=== PATIENT | female | born 1975 | race Caucasian/White ===

== ENCOUNTER 2021-06-23 08:38 | Inpatient (IN) | payer OTHER ==
[2021-06-23] VITALS (7 sets, daily range): BP systolic 93–108; BP diastolic 53–63
[~2021-06-23] VITALS: Ht 167.6 cm; Wt 75.0 kg
[2021-06-23] MEDS ORDERED: FOLIC ACID 1 MG TABLET. PO ONE (09:00)
[2021-06-23] MEDS ORDERED: MULTIVITAMIN with MINERAL TABLET. PO ONE (09:00)
[2021-06-23] MEDS ORDERED: THIAMINE 100 MG TABLET. PO ONE (09:00)
[2021-06-23 09:04] LABS: BASE EXCESS ABG -7 mmol/L (-3-3); FIO2 ABG 100 NRB; HCO3 ABG 17 mmol/L (21-28); PCO2 ABG 29 mmHg (35-46); PO2 ABG 437 mmHg (75-108); SAT O2 ABG 99 % (92-99)
--- NOTE | 2021-06-23 09:32 | RAD ---
EXAM: Chest, single view. HISTORY: Altered mental status. COMPARISON: None. FINDINGS: A frontal view of the chest is obtained. There is no infiltrate, pleural effusion or pneumo thorax. There are circumscribed nodular opacities overlying the lower thorax due to nipple shadows. T he heart is normal in size. IMPRESSION: No acute pulmonary finding. Electronically signed by: Aditi Brandt MD (06/23/2021 9:30 AM) [id number]
[2021-06-23] MEDS ORDERED: MULTIVIT INFUSN,ADULT 4,VIT K 10 ML, THIAMINE INJ 100 MG, FOLIC ACID INJ 1 MG in IV NOR... IV ONE (10:00)
[2021-06-23 10:02] LABS: BASO % 0 % (0-3); EOS % 1 % (0-3); HEMATOCRIT 41.3 % (36.0-47.0); HEMOGLOBIN 14.2 g/dL (12.0-15.5); LYMPH % 27 % (24-48); MEAN CORPUSCULAR HEMOGLOBIN 31 pg (25-35); MEAN CORPUSCULAR HGB CONC 34 g/dL (31-37); MEAN CORPUSCULAR VOLUME 92 fL (79-100); MONO # 0.2 x10^3/uL (0.0-1.1); MONO % 5 % (0-9); NEUT # 2.5 x10^3/uL (1.8-7.7); NEUT % 67 % (31-73); PLATELET COUNT 261 x10^3/uL (140-400); RED BLOOD COUNT 4.51 x10^6/uL (3.50-5.40); RED CELL DISTRIBUTION WIDTH 13.5 % (11.5-14.5); WHITE BLOOD COUNT 3.8 x10^3/uL (4.0-11.0)
[2021-06-23 10:17] LABS: ACETAMIN < 2 mcg/ml (10-30); SALIC 1.5 mg/dL (2.8-20.0)
[2021-06-23 10:19] LABS: ETHANOL 114 mg/dL (0-10)
--- NOTE | 2021-06-23 10:20 | RAD ---
CT HEAD/BRAIN WO History: Intoxication. Altered mental status. Comparison: None. Technique: Noncontrast CT imaging was performed of the head. Findings: No intracranial hemorrhage. No mass effect. No hydrocephalus. No evidence of acute territorial infar ction. Imaged orbits are unremarkable. Imaged paranasal sinuses and mastoid air cells are clear. The scalp a nd calvarium are unremarkable. Impression: 1. No acute intracranial abnormality. ----- Exposure: One or more of the following individualized dose reduction techniques were utilized for thi s examination: 1. Automated exposure control 2. Adjustment of the mA and/or kV according to patient size 3. Use of iterative reconstruction technique. Electronically signed by: Isaias Patterson MD (06/23/2021 10:18 AM) [id number]
[2021-06-23 10:55] LABS: CALCIUM 8.9 mg/dL (8.5-10.1); CREATININE 1.1 mg/dL (0.6-1.0); GFR 53.5; POTASSIUM 4.1 mmol/L (3.5-5.1)
[2021-06-23 11:01] LABS: DIRECT BILIRUBIN 0.1 mg/dL (0.0-0.2); MAGNESIUM 2.2 mg/dL (1.8-2.4); TOTAL BILIRUBIN 0.2 mg/dL (0.2-1.0)
[2021-06-23 11:52] LABS: RBC,URINE OCC /HPF (0-2)
[2021-06-23 11:58] LABS: BACTERIA,URINE 0 /HPF (0-FEW)
[2021-06-23 12:06] LABS: BARBITURATES NEG (NEG); BENZODIAZEPINES POS (NEG); CANNABINOIDS NEG (NEG); COCAINE NEG (NEG); METHADONE NEG (NEG); OPIATES NEG (NEG); PHENCYCLIDINE NEG (NEG)
[2021-06-23 12:09] LABS: AMPHETAMINE/METHAMPHETAMINE NEG (NEG)
--- NOTE | 2021-06-23 14:44 | HP ---
DATE OF SERVICE: 06/23/2021 ADMIT DATE: 06/23/2021 CHIEF COMPLAINT: Mental status change. HISTORY OF PRESENT ILLNESS: The patient is a pleasant 46-year-old female who was found in her car. She is drunk. The car was in the garage but the engine was apparently not running. The ER physician was able to talk to her briefly and asked her if she felt like she was going to hurt herself, she said yes she was going to hurt herself. Currently, the patient is stable. We are going to admit the patient. I am going to get a carbon monoxide level. I spoke with the lab. I spoke with the ER physician. PAST MEDICAL HISTORY: Probable alcohol issues. ALLERGIES: None. FAMILY HISTORY: Hypertension. SOCIAL HISTORY: Apparently, she drinks. We are not sure if she smokes or takes drugs. MEDICATIONS: Reviewed. Please refer to the MRAD. REVIEW OF SYSTEMS: Unable to obtain. She is sleepy, will not talk. PHYSICAL EXAMINATION: VITALS: Within normal limits and are stable. GENERAL: She is sleepy and will not talk. HEENT: Normal cephalic atraumatic, external auditory canals are patent. EYES: Extraocular muscles are intact, pupils are equally round and reactive to light and accommodation. MUSCULOSKELETAL: Well developed, well nourished, good range of motion. ENDOCRINE: No thyromegaly was palpated. LYMPHATICS: No cervical chain or axillary nodes were noted. HEMATOPOIETIC: No bruising. NECK: Supple, no JVD, no thyromegaly was noted. LUNGS: Clear to auscultation in all lung mosquera without rhonchi or wheezing. HEART: RRR, S1, S2 present. Peripheral pulses intact, no obvious murmurs were noted. ABDOMEN: Soft, nontender. Positive bowel sounds no organomegaly, normal bowel sounds. EXTREMITIES: Without any cyanosis, clubbing, or edema. Pedal pulses intact, Homans sign is negative. NEUROLOGIC: She is sleepy and will not talk. PSYCHIATRIC: She is sleepy and will not talk. SKIN: No ulcerations or rashes, good skin turgor, no jaundice. VASCULAR: Good capillary refill, neurovascular bundle appears to be intact. LABORATORY DATA: ABG: pH of 7.37, pCO2 of 29, pO2 of 437 with 99% sat on 100% nonrebreather. Electrolytes are normal. Drug screen, salicylate level 1.5, she is positive for benzos and she is also positive for alcohol. ASSESSMENT AND PLAN: Alcohol intoxication combined with benzos with a small possibility that she may have carbon monoxide poisoning as well. I have ordered a carbon monoxide level. For now we are doing 1:1 observation. Alcohol withdrawal protocol, home meds. Deep venous thrombosis prophylaxis. Full code. JUAN DR: Dottie TID: [id number]
--- NOTE | 2021-06-23 14:54 | PHYS DOC ---
Past Medical History Past Surgical History: No Surgical History Smoking Status: Unknown if ever smoked Alcohol Use: Heavy General Adult EDM: Chief Complaint: ALCOHOL INTOXICATION HPI: HPI: Patient is a 46 year old F who presents with acute alcohol intoxication. Patient presented by EMS after being found by family in her car. Patient is a wake and alert but sleepy. Patient was found with many alcohol bottles. Patient was in her vehicle with the vehicle turned off. Otherwise patient is not having any complaints. Review of Systems: Review of Systems: Constitutional: Denies fever or chills. [] Eyes: Denies change in visual acuity. [] HENT: Denies nasal congestion or sore throat. [] Respiratory: Denies cough or shortness of breath. [] Cardiovascular: Denies chest pain or edema. [] GI: Denies abdominal pain, nausea, vomiting, bloody stools or diarrhea. [] : Denies dysuria. [] Musculoskeletal: Denies back pain or joint pain. [] Integument: Denies rash. [] Neurologic: Denies headache, focal weakness or sensory changes. [] Endocrine: Denies polyuria or polydipsia. [] Lymphatic: Denies swollen glands. [] Psychiatric: Denies depression or anxiety. [] Heart Score: C/O Chest Pain: No Risk Factors: Risk Factors: DM, Current or recent (<one month) smoker, HTN, HLP, family history of CAD, obesity. Risk Scores: Score 0 - 3: 2.5% MACE over next 6 weeks - Discharge Home Score 4 - 6: 20.3% MACE over next 6 weeks - Admit for Clinical Observation Score 7 - 10: 72.7% MACE over next 6 weeks - Early Invasive Strategies Current Medications: Current Medications Medications (Trade) Dose Ordered Sig/[facility] Start Time Stop Time Status Last Admin Dose Admin Folic Acid (Folic Acid) 1 mg 1X ONCE 06/23/21 09:00 06/23/21 09:01 UNV Multivitamins (Thera M Plus) 1 tab 1X ONCE 06/23/21 09:00 06/23/21 09:01 UNV Multivitamins 10 ml/Thiamine HCl 100 mg/Folic Acid 1 mg/Sodium Chloride 1,011.2 ml @ 1,000 mls/ hr 1X ONCE 06/23/21 10:00 06/23/21 11:00 DC 06/23/21 09:25 1,000 MLS/HR Thiamine Mononitrate (Vitamin B-1) 100 mg 1X ONCE 06/23/21 09:00 06/23/21 09:01 UNV Allergies: Allergies: Allergies Coded Allergies Type Severity Reaction Last Updated Verified No Known Drug Allergies 06/23/21 No Physical Exam: PE: Constitutional: Well developed, well nourished, no acute distress, non-toxic appearance. [] HENT: Normocephalic, atraumatic, bilateral external ears normal, oropharynx moist, no oral exudates, nose normal. [] Eyes: PERRLA, EOMI, conjunctiva normal, no discharge. [] Neck: Normal range of motion, no tenderness, supple, no stridor. [] Cardiovascular:Heart rate regular rhythm, no murmur [] Lungs & Thorax: Bilateral breath sounds clear to auscultation [] Abdomen: Bowel sounds normal, soft, no tenderness, no masses, no pulsatile masses. [] Skin: Warm, dry, no erythema, no rash. [] Back: No tenderness, no CVA tenderness. [] Extremities: No tenderness, no cyanosis, no clubbing, ROM intact, no edema. [] Neurologic: Alert and oriented X 3, normal motor function, normal sensory fun ction, no focal deficits noted. [] Psychologic: Affect normal, judgement normal, mood normal. [] Current Patient Data: Labs: Laboratory Tests Test 06/23/21 08:51 06/23/21 08:54 06/23/21 09:17 06/23/21 09:42 Urine Collection Type Unknown Urine Color (Auto) Colorless Urine Turbidity Clear Urine pH (Auto) 5.5 (<5.0-8.0) Urine Specific [place] 1.005 (1.000-1.030) Urine Protein (Auto) Negative mg/dL (Negative) Urine Glucose (Auto)(UA) Negative mg/dL (Negative) Urine Ketones (Auto) Negative mg/dL (Negative) Urine Blood (Auto) Negative (Negative) Urine Nitrite (Auto) Negative (Negative) Urine Bilirubin (Auto) Negative (Negative) Urine Urobilinogen (Auto) Normal mg/dL (Normal) Urine Leukocyte Esterase (Auto) Negative (Negative) Urine RBC Occ /HPF (0-2) Urine WBC 1-4 /HPF (0-4) Urine Squamous Epithelial Cells Few /LPF Urine Bacteria 0 /HPF (0-FEW) Urine Mucus /LPF Urine Opiates Screen Neg (NEG) Urine Methadone Screen Neg (NEG) Urine Barbiturates Neg (NEG) Urine Phencyclidine Screen Neg (NEG) Urine Amphetamine/Methamphetamine Neg (NEG) Urine Benzodiazepines Screen Pos (NEG) Urine Cocaine Screen Neg (NEG) Urine Cannabinoids Screen Neg (NEG) Urine Ethyl Alcohol Pos (NEG) O2 Saturation 99 % (92-99) Arterial Blood pH 7.37 (7.35-7.45) Arterial Blood pCO2 at Patient Temp 29 mmHg (35-46) L Arterial Blood pO2 at Patient Temp 437 mmHg (75-108) H Arterial Blood HCO3 17 mmol/L (21-28) L Arterial Blood Base Excess -7 mmol/L (-3-3) L FiO2 100 nrb SARS-CoV-2 Antigen (Rapid) Negative (NEGATIVE) White Blood Count 3.8 x10^3/uL (4.0-11.0) L Red Blood Count 4.51 x10^6/uL (3.50-5.40) Hemoglobin 14.2 g/dL (12.0-15.5) Hematocrit 41.3 % (36.0-47.0) Mean Corpuscular Volume 92 fL (79-100) Mean Corpuscular Hemoglobin 31 pg (25-35) Mean Corpuscular Hemoglobin Concent 34 g/dL (31-37) Red Cell Distribution Width 13.5 % (11.5-14.5) Platelet Count 261 x10^3/uL (140-400) Neutrophils (%) (Auto) 67 % (31-73) Lymphocytes (%) (Auto) 27 % (24-48) Monocytes (%) (Auto) 5 % (0-9) Eosinophils (%) (Auto) 1 % (0-3) Basophils (%) (Auto) 0 % (0-3) Neutrophils # (Auto) 2.5 x10^3/uL (1.8-7.7) Lymphocytes # (Auto) 1.0 x10^3/uL (1.0-4.8) Monocytes # (Auto) 0.2 x10^3/uL (0.0-1.1) Eosinophils # (Auto) 0.0 x10^3/uL (0.0-0.7) Basophils # (Auto) 0.0 x10^3/uL (0.0-0.2) Lactic Acid Level 1.7 mmol/L (0.4-2.0) Salicylates Level 1.5 mg/dL (2.8-20.0) L Salicylate Last Dose Date Unknown Salicylate Last Dose Time Unknown Acetaminophen Level < 2 mcg/ml (10-30) L Acetaminophen Last Dose Date Unknown Acetaminophen Last Dose Time Unknown Ethyl Alcohol Level 114 mg/dL (0-10) H Test 06/23/21 10:13 Sodium Level 140 mmol/L (136-145) Potassium Level 4.1 mmol/L (3.5-5.1) Chloride Level 106 mmol/L (98-107) Carbon Dioxide Level 22 mmol/L (21-32) Anion Gap 12 (6-14) Blood Urea Nitrogen 13 mg/dL (7-20) Creatinine 1.1 mg/dL (0.6-1.0) H Estimated GFR (Cockcroft-Gault) 53.5 Glucose Level 91 mg/dL (70-99) Calcium Level 8.9 mg/dL (8.5-10.1) Magnesium Level 2.2 mg/dL (1.8-2.4) Total Bilirubin 0.2 mg/dL (0.2-1.0) Direct Bilirubin 0.1 mg/dL (0.0-0.2) Aspartate Amino Transferase (AST) 16 U/L (15-37) Alanine Aminotransferase (ALT) 23 U/L (14-59) Alkaline Phosphatase 40 U/L (46-116) L Total Protein 8.0 g/dL (6.4-8.2) Albumin 4.0 g/dL (3.4-5.0) Laboratory Tests 06/23/21 09:42 Laboratory Tests 06/23/21 10:13 Vital Signs: Vital Signs Date Time Temp Pulse Resp B/P (MAP) Pulse Ox O2 Delivery O2 Flow Rate FiO2 06/23/21 11:57 81 20 100/63 (75) 99 Room Air 06/23/21 08:50 98.6 98.6 EKG: EKG: Normal sinus rhythm Radiology/Procedures: Radiology/Procedures: [] Impression: Chest x-ray within normal limits Course & Med Decision Making: Course & Med Decision Making Pertinent Labs and Imaging studies reviewed. (See chart for details) 46-year-old female with acute alcohol intoxication, patient is somnolent, she is alert and oriented when awakened. Patient is not having any complaints, when questioned she does state that she tried to hurt herself. She states that she has suicidal ideation. She is currently hemodynamically stable. With the combination of acute alcohol intoxication and suicidal ideation, decision was made to admit the patient to the hospitalist service. Carboxyhemoglobin pending. Patient admitted to the service of Dr. Zhu; patient is hemodynamically stable at time of admission Dragon Disclaimer: Amira Disclaimer: This electronic medical record was generated, in whole or in part, using a voice recognition dictation system. Departure Departure Impression: Primary Impression: Alcohol intoxication delirium Additional Impression: Suicidal ideation Disposition: ADMITTED INPATIENT Condition: GOOD SHAINA MCCLAIN MD June 23, 2021 14:54
[2021-06-24] VITALS (9 sets, daily range): BP systolic 92–115; BP diastolic 49–83
--- NOTE | 2021-06-24 06:03 | EKG ---
[facility] [address] [place] [address] Test Date: 2021-06-23 Test Time: 11:37:40 Pat Name: GIDEON HERNANDEZ Department: Room: ED HOLD 22 Gender: F [employer]: : 1975 Requested By: SHAINA Ortiz Number: [id number] Reading MD: Dennys Vega Measurements Intervals [place] Rate: 79 P: 48 OR: 150 QRS: 45 QRSD: 78 T: 48 QT: 382 QTc: 439 Interpretive Statements SINUS RHYTHM NORMAL ECG RI6.02 No previous ECG available for comparison Electronically Signed On 06-26-2021 10:14:10 CDT by Dennys Vega
[2021-06-24] MEDS ORDERED: ONDANSETRON PF 4 MG/2 ML VIAL. IVP PRN (08:00)
[2021-06-24] MEDS ORDERED: cloNIDine HCL 0.1 MG TABLET PO PRN (08:00)
[2021-06-24] MEDS ORDERED: ACETAMINOPHEN 325 MG TABLET. PO PRN (08:00)
--- NOTE | 2021-06-24 08:54 | PDOC ---
[employer] PROGRESS NOTE Date of Service DOS: DATE: 06/24/21 TIME: 08:31 Chief Complaint Chief Complaint Acute encephalopathy - due to alcohol intoxication, toxic Suicidal ideation - no specific plan currently, very depressed Depression with bipolar disorder Migraines Fibromyalgia Atopic dermatitis FEN - regular diet PPX - ambulatory, low risk FULL CODE Dispo -patient medically stable and cleared for discharge to psychiatric [facility] History of Present Illness History of Present Illness Ms Monsalve is a 46yo female w/ PMHx Depression with bipolar disorder, migraines, fibromyalgia, and atopic dermatitis who presented to ED via EMS after being found by family and friends intoxicated in her car. When she woke she endorsed she was trying to kill her self and felt worthless and wishes she was not here anymore. She was intoxicated initially on 06/23/2021 when she arrived and urine drug screen also positive for benzodiazepines and mild transaminitis and slight leukopenia otherwise negative CT head negative chest radiograph. She was placed on one-to-one 1 hold for suicidal ideation and [place] catheter placed due to confusion concern for incontinence. 06/23: She notes diffuse pain and just wants the pain to go away this morning. She notes she is previously been hospitalized inpatient psych in the [place] and thinks she has been to either [facility] or [facility] previously but has not returned. She says she sees Dr. Muse outpatient and has been prescribed Prozac previously and Cymbalta but they are sitting in her closet. The only medication that she can recall taking regularly are gabapentin Dupixent and Topamax. She notes she is awaiting referral to a neurologist for migraine headaches and fibromyalgia. She says recently she has been more depressed over friends and she feels she has survivors guilt. She notes she does struggle with alcohol misuse but has no history of other substance abuse Plan: We will consult psychiatric assessment team nurse liaison, CARLA [place] catheter, start gabapentin Topamax Cymbalta reconciled rest of her medications. After assessment by PAT team may be able to discontinue one-to-one. Otherwise, patient has no acute medical conditions requiring inpatient hospitalization and is medically cleared for discharge to psychiatric facility Vitals/I&O Vitals/I&O: Vital Signs Date Time Temp Pulse Resp B/P (MAP) Pulse Ox O2 Delivery O2 Flow Rate FiO2 06/24/21 06:51 78 18 109/60 (76) 98 Room Air 06/23/21 08:50 98.6 98.6 I & O 06/23/21 06/23/21 06/24/21 15:00 23:00 07:00 Intake Total 1000 ml Output Total 800 ml 850 ml Balance 200 ml -850 ml Physical Exam General: Alert, Cooperative Heart: Regular rate, Normal S1, Normal S2 Lungs: Clear Abdomen: Normal bowel sounds, Soft Extremities: No clubbing, No cyanosis Skin: No rashes, No breakdown Labs Labs: Laboratory Tests Test 06/23/21 08:51 06/23/21 08:54 06/23/21 09:17 06/23/21 09:42 Urine Collection Type Unknown Urine Color (Auto) Colorless Urine Turbidity Clear Urine pH (Auto) 5.5 (<5.0-8.0) Urine Specific [place] 1.005 (1.000-1.030) Urine Protein (Auto) Negative mg/dL (Negative) Urine Glucose (Auto)(UA) Negative mg/dL (Negative) Urine Ketones (Auto) Negative mg/dL (Negative) Urine Blood (Auto) Negative (Negative) Urine Nitrite (Auto) Negative (Negative) Urine Bilirubin (Auto) Negative (Negative) Urine Urobilinogen (Auto) Normal mg/dL (Normal) Urine Leukocyte Esterase (Auto) Negative (Negative) Urine RBC Occ /HPF (0-2) Urine WBC 1-4 /HPF (0-4) Urine Squamous Epithelial Cells Few /LPF Urine Bacteria 0 /HPF (0-FEW) Urine Mucus /LPF Urine Opiates Screen Neg (NEG) Urine Methadone Screen Neg (NEG) Urine Barbiturates Neg (NEG) Urine Phencyclidine Screen Neg (NEG) Urine Amphetamine/Methamphetamine Neg (NEG) Urine Benzodiazepines Screen Pos (NEG) Urine Cocaine Screen Neg (NEG) Urine Cannabinoids Screen Neg (NEG) Urine Ethyl Alcohol Pos (NEG) O2 Saturation 99 % (92-99) Arterial Blood pH 7.37 (7.35-7.45) Arterial Blood pCO2 at Patient Temp 29 mmHg (35-46) Arterial Blood pO2 at Patient Temp 437 mmHg (75-108) Arterial Blood HCO3 17 mmol/L (21-28) Arterial Blood Base Excess -7 mmol/L (-3-3) FiO2 100 nrb Coronavirus (COVID-19)(PCR) Not detected (NOT DETECTD) SARS-CoV-2 Antigen (Rapid) Negative (NEGATIVE) White Blood Count 3.8 x10^3/uL (4.0-11.0) Red Blood Count 4.51 x10^6/uL (3.50-5.40) Hemoglobin 14.2 g/dL (12.0-15.5) Hematocrit 41.3 % (36.0-47.0) Mean Corpuscular Volume 92 fL (79-100) Mean Corpuscular Hemoglobin 31 pg (25-35) Mean Corpuscular Hemoglobin Concent 34 g/dL (31-37) Red Cell Distribution Width 13.5 % (11.5-14.5) Platelet Count 261 x10^3/uL (140-400) Neutrophils (%) (Auto) 67 % (31-73) Lymphocytes (%) (Auto) 27 % (24-48) Monocytes (%) (Auto) 5 % (0-9) Eosinophils (%) (Auto) 1 % (0-3) Basophils (%) (Auto) 0 % (0-3) Neutrophils # (Auto) 2.5 x10^3/uL (1.8-7.7) Lymphocytes # (Auto) 1.0 x10^3/uL (1.0-4.8) Monocytes # (Auto) 0.2 x10^3/uL (0.0-1.1) Eosinophils # (Auto) 0.0 x10^3/uL (0.0-0.7) Basophils # (Auto) 0.0 x10^3/uL (0.0-0.2) Lactic Acid Level 1.7 mmol/L (0.4-2.0) Salicylates Level 1.5 mg/dL (2.8-20.0) Salicylate Last Dose Date Unknown Salicylate Last Dose Time Unknown Acetaminophen Level < 2 mcg/ml (10-30) Acetaminophen Last Dose Date Unknown Acetaminophen Last Dose Time Unknown Ethyl Alcohol Level 114 mg/dL (0-10) Test 06/23/21 10:13 Sodium Level 140 mmol/L (136-145) Potassium Level 4.1 mmol/L (3.5-5.1) Chloride Level 106 mmol/L (98-107) Carbon Dioxide Level 22 mmol/L (21-32) Anion Gap 12 (6-14) Blood Urea Nitrogen 13 mg/dL (7-20) Creatinine 1.1 mg/dL (0.6-1.0) Estimated GFR (Cockcroft-Gault) 53.5 Glucose Level 91 mg/dL (70-99) Calcium Level 8.9 mg/dL (8.5-10.1) Magnesium Level 2.2 mg/dL (1.8-2.4) Total Bilirubin 0.2 mg/dL (0.2-1.0) Direct Bilirubin 0.1 mg/dL (0.0-0.2) Aspartate Amino Transf (AST/SGOT) 16 U/L (15-37) Alanine Aminotransferase (ALT/SGPT) 23 U/L (14-59) Alkaline Phosphatase 40 U/L (46-116) Total Protein 8.0 g/dL (6.4-8.2) Albumin 4.0 g/dL (3.4-5.0) Assessment and Plan Assessmemt and Plan Problems Medical Problems: (1) Alcohol intoxication delirium Status: Acute (2) Atypical chest pain Status: Acute (3) Suicidal ideation Status: Acute Comment Review of Relevant I have reviewed the following items jeniffer (where applicable) has been applied. Medications: Current Medications Medications (Trade) Dose Ordered Sig/Juan Acrlos Route PRN Reason Start Time Stop Time Status Last Admin Dose Admin Multivitamins 10 ml/Thiamine HCl 100 mg/Folic Acid 1 mg/Sodium Chloride 1,011.2 ml @ 1,000 mls/ hr 1X ONCE IV 06/23/21 10:00 06/23/21 11:00 DC 06/23/21 09:25 Justifications for Admission Other Justification TONI MOSHER MD June 24, 2021 08:54
[2021-06-24] MEDS ORDERED: THIAMINE 100 MG TABLET. PO SCH (09:00)
[2021-06-24] MEDS ORDERED: TOPIRAMATE 25 MG TABLET. PO SCH (09:00)
[2021-06-24] MEDS ORDERED: MULTIVITAMIN with MINERAL TABLET. PO SCH (09:00)
[2021-06-24] MEDS ORDERED: DULoxetine HCL 30 MG CAPSULE.DR PO SCH (09:00)
[2021-06-24] MEDS ORDERED: FOLIC ACID 1 MG TABLET. PO SCH (09:00)
[2021-06-24] MEDS: GABAPENTIN 300 MG CAPSULE. PO SCH ×2 (10:33→15:58)
[2021-06-24] MEDS ORDERED: Folic Acid PO (15:35)
[2021-06-24] MEDS ORDERED: GABA300C18 PO (15:35)
[2021-06-24] MEDS ORDERED: OLAN5TAB7 PO (15:35)
[2021-06-24] MEDS ORDERED: PRAZ1CAP2 PO (15:35)
[2021-06-24] MEDS ORDERED: MULT1TAB92 PO (15:35)
[2021-06-24] MEDS ORDERED: THIA100T22 PO (15:35)
[2021-06-24] MEDS ORDERED: DULO30CA2 PO (15:35)
[2021-06-24] MEDS ORDERED: TOPI25TA52 PO (15:35)
[2021-06-24] MEDS ORDERED: ACET325T21 PO (15:35)
--- NOTE | 2021-06-24 15:38 | SNU/HH DC ---
DISCHARGE ORDERS DISCHARGE INFORMATION: DISCHARGE DATE: June 24, 2021 FINAL DIAGNOSIS Problems Medical Problems: (1) Alcohol intoxication delirium Status: Acute (2) Atypical chest pain Status: Acute (3) Suicidal ideation Status: Acute CONDITION ON DISCHARGE: Stable CODE STATUS: Code Status: Full POST DISCHARGE ORDERS: ACTIVITY ORDERS: No restrictions WEIGHT BEARING STATUS: No restrictions DIET AFTER DISCHARGE: Regular CHECKS AFTER DISCHARGE: CHECKS AFTER DISCHARGE: Check blood press - daily, Check your Temp as needed FOLLOW-UP: PHYSICIAN FOLLOW-UP: Dr. GARCIA - Psychiatry, [facility] ADDITIONAL FOLLOW-UP: Dr. Susan Muse, PCP Additional Instructions: 1-1 sitter for suicidal thoughts and behavior TREATMENT/EQUIPMENT ORDERS: ADAPTIVE EQUIPMENT NEEDED: None DISCHARGE MEDICATIONS: Home Meds Active Scripts Prazosin Hcl (PRAZOSIN HCL) 1 Mg Capsule, 1 CAP PO QHS for Nightmares/Depression for 30 Days, #30 CAP 2 Refills Prov:TONI MOSHER MD 06/24/21 Topiramate (TOPAMAX) 25 Mg Tablet, 50 MG PO BID for Headache for 30 Days, #120 TAB Prov:TONI MOSHER MD 06/24/21 Duloxetine Hcl (CYMBALTA) 30 Mg Capsule.dr, 30 MG PO DAILY for Depression for 30 Days, #30 CAP Prov:TONI MOSHER MD 06/24/21 Olanzapine (OLANZAPINE ODT) 5 Mg Tab.rapdis, 5 MG PO PRN BID PRN for ANXIETY / AGITATION for 30 Days, #60 TAB Prov:TONI MOSHER MD 06/24/21 Multivits,Ca,Minerals/Iron/Fa (THERA-M TABLET) 1 Each Tablet, 1 TAB PO DAILY for ETOH for 30 Days, #30 TAB Prov:TONI MOSHER MD 06/24/21 Thiamine Mononitrate (VITAMIN B-1) 100 Mg Tablet, 100 MG PO DAILY for ETOH for 30 Days, #30 TAB Prov:TONI MOSHER MD 06/24/21 [Folic Acid] 1 MG TABLET No Conflict Check, 1 MG PO DAILY for ETOH for 30 Days, #30 Prov:TONI MOSHER MD 06/24/21 Acetaminophen (ACETAMINOPHEN) 325 Mg Tablet, 650 MG PO PRN Q6HRS PRN for MILD PAIN / TEMP > 100.3'F for 30 Days, #120 TAB Prov:TONI MOSHER MD 06/24/21 Gabapentin (GABAPENTIN) 300 Mg Capsule, 300 MG PO TID for ETOH for 30 Days, #90 CAP Prov:TONI MOSHER MD 06/24/21 TONI MOSHER MD June 24, 2021 15:38
--- NOTE | 2021-06-24 15:47 | PDOC3 ---
Discharge Summary Visit Information Date of Admission: June 23, 2021 Date of Discharge: June 24, 2021 Admitting Diagnosis: Suicidal ideation Final Diagnosis Problems Medical Problems: (1) Alcohol intoxication delirium Status: Acute (2) Atypical chest pain Status: Acute (3) Suicidal ideation Status: Acute Brief Hospital Course Allergies Allergies Coded Allergies Type Severity Reaction Last Updated Verified No Known Drug Allergies 06/23/21 No Vital Signs Vital Signs Date Time Temp Pulse Resp B/P (MAP) Pulse Ox O2 Delivery O2 Flow Rate FiO2 06/24/21 15:00 90 18 115/83 (94) 99 Room Air 06/23/21 08:50 98.6 98.6 Lab Results Laboratory Tests Test 06/23/21 08:51 06/23/21 08:54 06/23/21 09:17 06/23/21 09:42 Urine Collection Type Unknown Urine Color (Auto) Colorless Urine Turbidity Clear Urine pH (Auto) 5.5 (<5.0-8.0) Urine Specific [place] 1.005 (1.000-1.030) Urine Protein (Auto) Negative mg/dL (Negative) Urine Glucose (Auto)(UA) Negative mg/dL (Negative) Urine Ketones (Auto) Negative mg/dL (Negative) Urine Blood (Auto) Negative (Negative) Urine Nitrite (Auto) Negative (Negative) Urine Bilirubin (Auto) Negative (Negative) Urine Urobilinogen (Auto) Normal mg/dL (Normal) Urine Leukocyte Esterase (Auto) Negative (Negative) Urine RBC Occ /HPF (0-2) Urine WBC 1-4 /HPF (0-4) Urine Squamous Epithelial Cells Few /LPF Urine Bacteria 0 /HPF (0-FEW) Urine Mucus /LPF Urine Opiates Screen Neg (NEG) Urine Methadone Screen Neg (NEG) Urine Barbiturates Neg (NEG) Urine Phencyclidine Screen Neg (NEG) Urine Amphetamine/Methamphetamine Neg (NEG) Urine Benzodiazepines Screen Pos (NEG) Urine Cocaine Screen Neg (NEG) Urine Cannabinoids Screen Neg (NEG) Urine Ethyl Alcohol Pos (NEG) O2 Saturation 99 % (92-99) Arterial Blood pH 7.37 (7.35-7.45) Arterial Blood pCO2 at Patient Temp 29 mmHg (35-46) Arterial Blood pO2 at Patient Temp 437 mmHg (75-108) Arterial Blood HCO3 17 mmol/L (21-28) Arterial Blood Base Excess -7 mmol/L (-3-3) FiO2 100 nrb Coronavirus (COVID-19)(PCR) Not detected (NOT DETECTD) SARS-CoV-2 Antigen (Rapid) Negative (NEGATIVE) White Blood Count 3.8 x10^3/uL (4.0-11.0) Red Blood Count 4.51 x10^6/uL (3.50-5.40) Hemoglobin 14.2 g/dL (12.0-15.5) Hematocrit 41.3 % (36.0-47.0) Mean Corpuscular Volume 92 fL (79-100) Mean Corpuscular Hemoglobin 31 pg (25-35) Mean Corpuscular Hemoglobin Concent 34 g/dL (31-37) Red Cell Distribution Width 13.5 % (11.5-14.5) Platelet Count 261 x10^3/uL (140-400) Neutrophils (%) (Auto) 67 % (31-73) Lymphocytes (%) (Auto) 27 % (24-48) Monocytes (%) (Auto) 5 % (0-9) Eosinophils (%) (Auto) 1 % (0-3) Basophils (%) (Auto) 0 % (0-3) Neutrophils # (Auto) 2.5 x10^3/uL (1.8-7.7) Lymphocytes # (Auto) 1.0 x10^3/uL (1.0-4.8) Monocytes # (Auto) 0.2 x10^3/uL (0.0-1.1) Eosinophils # (Auto) 0.0 x10^3/uL (0.0-0.7) Basophils # (Auto) 0.0 x10^3/uL (0.0-0.2) Lactic Acid Level 1.7 mmol/L (0.4-2.0) Salicylates Level 1.5 mg/dL (2.8-20.0) Salicylate Last Dose Date Unknown Salicylate Last Dose Time Unknown Acetaminophen Level < 2 mcg/ml (10-30) Acetaminophen Last Dose Date Unknown Acetaminophen Last Dose Time Unknown Ethyl Alcohol Level 114 mg/dL (0-10) Test 06/23/21 10:13 06/24/21 13:26 Sodium Level 140 mmol/L (136-145) Potassium Level 4.1 mmol/L (3.5-5.1) Chloride Level 106 mmol/L (98-107) Carbon Dioxide Level 22 mmol/L (21-32) Anion Gap 12 (6-14) Blood Urea Nitrogen 13 mg/dL (7-20) Creatinine 1.1 mg/dL (0.6-1.0) Estimated GFR (Cockcroft-Gault) 53.5 Glucose Level 91 mg/dL (70-99) Calcium Level 8.9 mg/dL (8.5-10.1) Magnesium Level 2.2 mg/dL (1.8-2.4) Total Bilirubin 0.2 mg/dL (0.2-1.0) Direct Bilirubin 0.1 mg/dL (0.0-0.2) Aspartate Amino Transf (AST/SGOT) 16 U/L (15-37) Alanine Aminotransferase (ALT/SGPT) 23 U/L (14-59) Alkaline Phosphatase 40 U/L (46-116) Total Protein 8.0 g/dL (6.4-8.2) Albumin 4.0 g/dL (3.4-5.0) Thyroid Stimulating Hormone (TSH) 0.917 uIU/mL (0.358-3.74) Treponema pallidum Antibody Nonreactive (Nonreactive) Bedside Urine HCG, Qualitative Hcg negative (Negative) Laboratory Tests Test 06/24/21 13:26 Bedside Urine HCG, Qualitative Hcg negative (Negative) Brief Hospital Course Ms Monsalve is a 46yo female w/ PMHx Depression with bipolar disorder, migraines, fibromyalgia, and atopic dermatitis who presented to ED via EMS after being found by family and friends intoxicated in her car. When she woke she endorsed she was trying to kill her self and felt worthless and wishes she was not here anymore. She was intoxicated initially on 06/23/2021 when she arrived and urine drug screen also positive for benzodiazepines and mild transaminitis and slight leukopenia otherwise negative CT head negative chest radiograph. She was placed on one-to-one 1 hold for suicidal ideation and [place] catheter placed due to confusion concern for incontinence. 06/23: She notes diffuse pain and just wants the pain to go away this morning. She notes she is previously been hospitalized inpatient psych in the [place] and thinks she has been to either [facility] or [facility] previously but has not returned. She says she sees Dr. Muse outpatient and has been prescribed Prozac previously and Cymbalta but they are sitting in her closet. The only medication that she can recall taking regularly are gabapentin Dupixent and Topamax. She notes she is awaiting referral to a neurologist for migraine headaches and fibromyalgia. She says recently she has been more depressed over friends and she feels she has survivors guilt. She notes she does struggle with alcohol misuse but has no history of other substance abuse She still endorses a vague plan to overdose on her home prescriptions and alcohol and would do so if discharged home. TSH resulted 0.917, negative RPR, negative COVID 19 PCR, negative influenza rapid testing Patient is amenable to inpatient psychiatric transfer for monitoring and treatment of active suicidal behavior. Nurse liaison notes clinical acceptance by Dr. Florence at [facility] psychiatric homer. Patient is medically cleared. Problem list: Suicidal ideation - no specific plan currently, very depressed. Attempted to overdose on home medications and alcohol Acute encephalopathy - due to alcohol intoxication, toxic. Resolved. Sober Depression with bipolar disorder - she notes several medications previously and inpatient psychiatric stay in [place] Migraines - she notes she is on topomax Fibromyalgia - she notes she takes gabapentin ?Atopic dermatitis - per patient she has requested dupixent from rheumatology previously FEN - regular diet PPX - ambulatory, low risk FULL CODE Dispo -patient medically stable and cleared for discharge to psychiatric facility Plan: Started gabapentin Topamax Cymbalta reconciled rest of her medications. After assessment by PAT team may be able to discontinue one-to-one. Otherwise, patient has no acute medical conditions requiring inpatient hospitalization and is medically cleared for discharge to psychiatric facility PHYSICIAN FOLLOW-UP: Dr. FLORENCE - Psychiatry, [facility] ADDITIONAL FOLLOW-UP: Dr. Susan Muse, PCP Greater than 30 minutes spent on discharge to inpatient psych Discharge Information Condition at Discharge: Comment (1=1 sitter) Disposition/Orders: D/C to Another Facility ([facility] psychiatry) Scheduled Duloxetine Hcl (Cymbalta) 30 Mg Capsule., 30 MG PO DAILY for Depression for 30 Days, #30 Prescribed by: TONI MOSHER MD on 06/24/21 0630 Gabapentin (Gabapentin) 300 Mg Capsule, 300 MG PO TID for ETOH for 30 Days, #90 Prescribed by: TONI MOSHER MD on 06/24/21 1535 Multivits,Ca,Minerals/Iron/Fa (Thera-M Tablet) 1 Each Tablet, 1 TAB PO DAILY for ETOH for 30 Days, #30 Prescribed by: TONI MOSHER MD on 06/24/211534 Prazosin Hcl (Prazosin Hcl) 1 Mg Capsule, 1 CAP PO QHS for Nightmares/Depression for 30 Days, #30 Ref 2 Prescribed by: TONI MOSHER MD on 06/24/211534 Thiamine Mononitrate (Vitamin B-1) 100 Mg Tablet, 100 MG PO DAILY for ETOH for 30 Days, #30 Prescribed by: TONI MOSHER MD on 06/24/21 1535 Topiramate (Topamax) 25 Mg Tablet, 50 MG PO BID for Headache for 30 Days, #120 Prescribed by: TONI MOSHER MD on 06/24/21 153 [Folic Acid] 1 MG TABLET, 1 MG PO DAILY for ETOH for 30 Days, #30 Prescribed by: TONI MOSHER MD on 06/24/21 153 Scheduled PRN Acetaminophen (Acetaminophen) 325 Mg Tablet, 650 MG PO PRN Q6HRS PRN for MILD PAIN / TEMP > 100.3'F for 30 Days, #120 Prescribed by: TONI MOSHER MD on 06/24/21 153 Olanzapine (Olanzapine Odt) 5 Mg Tab.rapdis, 5 MG PO PRN BID PRN for ANXIETY / AGITATION for 30 Days, #60 Prescribed by: TONI MOSHER MD on 06/24/21 153 Justicifation of Admission Dx: Justifications for Admission: Justification of Admission Dx: Yes TONI MOSHER MD June 24, 2021 15:47
== END 2021-06-24 16:20 | DRG 917 ==
LOC: ER 08:38 → ED HOLD 12:17
PROVIDERS: ADMIT Internal Medicine; ATTEND Internal Medicine
DX: T50.992A Poisoning by other drugs, medicaments and biological substances, intentional self-harm, initial encounter (principal); G92.9 Unspecified toxic encephalopathy; R45.851 Suicidal ideations; F10.129 Alcohol abuse with intoxication, unspecified; F31.9 Bipolar disorder, unspecified; G43.909 Migraine, unspecified, not intractable, without status migrainosus; L20.9 Atopic dermatitis, unspecified; M79.7 Fibromyalgia; Z82.49 Family history of ischemic heart disease and other diseases of the circulatory system; T51.8X1A Toxic effect of other alcohols, accidental (unintentional), initial encounter; Y92.89 Other specified places as the place of occurrence of the external cause; T58.91XA Toxic effect of carbon monoxide from unspecified source, accidental (unintentional), initial encounter; Z20.822 Contact with and (suspected) exposure to COVID-19
CPT/HCPCS: 36415; 36600; 70450; 71045; 80048; 80076; 80307; 80329; 81001; 81025; 82805; 83605; 83735; 84443; 85025; 86592; 87426; 93005; 96365; 96366; G0480; J3411; J3490; J7030; U0003; 99285-25